=== PATIENT | female | born 1990 | race Caucasian/White ===

== ENCOUNTER → 2021-08-11 | Day surgery (SDC) | payer OTHER ==
[~2021-08-11] VITALS: Ht 165.1 cm; Wt 86.2 kg
[~2021-08-11] MED LIST: BUSPIRONE HCL15 MG PO; COLACE100 MG PO; IBUPROFEN800 MG PO; KETOROLAC TROME10 MG PO; LEXAPRO 10MG TA10 MG PO; TOPAMAX25 MG PO
[2021-08-11 06:58] LABS: HCT 39.4 % (37.0-47.0); HGB 13.2 g/dl (12.5-16.0); MCH 30.5 pg (25.0-31.0); MCHC 33.5 g/dL (32.0-36.0); MPV 9.3 fL (6.0-9.5); RBC 4.33 M/uL (4.20-5.40); RDW 13.2 % (11.5-14.0); WBC 7.6 K/uL (4.0-10.5)
[2021-08-11 07:08] LABS: HCG (URINE) SCREEN NEGATIVE (NEGATIVE)
== END | disposition home or self-care (01) ==
LOC: FAS 06:16
PROVIDERS: Specialist
DX: R10.2 Pelvic and perineal pain (principal); G89.29 Other chronic pain; N80.9 Endometriosis, unspecified; N99.85 Post endometrial ablation syndrome; R23.4 Changes in skin texture; F06.4 Anxiety disorder due to known physiological condition; F31.9 Bipolar disorder, unspecified; F17.210 Nicotine dependence, cigarettes, uncomplicated
CPT/HCPCS: 36415; 84703; 86850; 86900; 86901; J0690; J1100; J1170; J1885; J2001; J2250; J2405; J2704; J3010; J7120

== ENCOUNTER 2021-09-01 11:37 | Emergency (ER) | payer OTHER ==
[2021-09-01 16:02] LABS: BASOPHIL 0.4 % (0-2); EOSINOPHIL 2.9 % (0-5); HCT 39.9 % (37.0-47.0); HGB 13.4 g/dl (12.5-16.0); LYMPHOCYTE 35.2 % (15-48); MCH 30.9 pg (25.0-31.0); MCHC 33.6 g/dL (32.0-36.0); MCV 91.9 fL (78.0-100.0); MONOCYTE 6.4 % (0-12); MPV 9.4 fL (6.0-9.5); NEUTROPHIL 54.8 % (41-80); NRBC 0; PLT 278 K/uL (150-400); RBC 4.34 M/uL (4.20-5.40); RDW 13.1 % (11.5-14.0); WBC 9.3 K/uL (4.0-10.5)
[2021-09-01 16:04] LABS: BILIRUBIN NEGATIVE (NEGATIVE); BLOOD NEGATIVE Ery/uL (NEGATIVE); CLARITY CLEAR (CLEAR); COLOR YELLOW (YELLOW); GLUCOSE (U) NORMAL (NORMAL); LEUKOCYTES NEGATIVE Leu/uL (NEGATIVE); NITRITE NEGATIVE (NEGATIVE); PROTEIN NEGATIVE (NEGATIVE); SPECIFIC GRAVITY >=1.030 (1.001-1.030); UROBILINOGEN 0.2 mg/dL (0.2-1.0)
[2021-09-01 16:10] LABS: BACTERIA TRACE
== END 2021-09-01 17:33 | disposition home or self-care (01) ==
LOC: FER 11:37
PROVIDERS: Physician Assistant
DX: R10.9 Unspecified abdominal pain (principal); F17.210 Nicotine dependence, cigarettes, uncomplicated; Z28.310 Unvaccinated for COVID-19
CPT/HCPCS: 36415; 81001; 85025; Q9967

== ENCOUNTER 2021-12-04 16:42 | Emergency (ER) | payer OTHER ==
[2021-12-04 17:47] LABS: BASOPHIL 0.5 % (0-2); EOSINOPHIL 2.5 % (0-5); HGB 13.3 g/dl (12.5-16.0); LYMPHOCYTE 40.8 % (15-48); MCH 30.4 pg (25.0-31.0); MCHC 32.4 g/dL (32.0-36.0); MCV 93.6 fL (78.0-100.0); MONOCYTE 5.1 % (0-12); MPV 9.6 fL (6.0-9.5); NEUTROPHIL 50.9 % (41-80); NRBC 0; PLT 267 K/uL (150-400); RBC 4.38 M/uL (4.20-5.40); RDW 13.2 % (11.5-14.0); WBC 9.3 K/uL (4.0-10.5)
[2021-12-04 17:52] LABS: BILIRUBIN NEGATIVE (NEGATIVE); BLOOD 3+ Ery/uL (NEGATIVE); CLARITY CLEAR (CLEAR); COLOR YELLOW (YELLOW); GLUCOSE (U) NORMAL (NORMAL); LEUKOCYTES NEGATIVE Leu/uL (NEGATIVE); NITRITE NEGATIVE (NEGATIVE); PROTEIN 1+ mg/dL (NEGATIVE); SPECIFIC GRAVITY >=1.030 (1.001-1.030)
[2021-12-04 18:28] LABS: MUCOUS TRACE
[2021-12-04 18:59] LABS: ALBUMIN 4.3 g/dL (3.4-5.0); BUN/CREAT RATIO (CALC) 12.7 RATIO; CREATININE 1.02 mg/dL (0.51-0.95); GLOBULIN (CALCULATION) 3.9 g/dL; POTASSIUM 3.8 mmol/L (3.5-5.1); TOTAL PROTEIN 8.2 g/dL (6.4-8.2)
[2021-12-05 05:13] LABS: BILIRUBIN - TOTAL 0.1 mg/dL (0.2-1.0)
== END 2021-12-04 23:15 | disposition home or self-care (01) ==
LOC: FER 16:42
PROVIDERS: Nurse Practitioner Family
DX: R31.9 Hematuria, unspecified (principal); R10.84 Generalized abdominal pain; F17.210 Nicotine dependence, cigarettes, uncomplicated; Z28.310 Unvaccinated for COVID-19
CPT/HCPCS: 36415; 80053; 81001; 85025; J7030; Q9967